=== PATIENT | female | born 1980 | race Caucasian/White ===

== ENCOUNTER → 2017-07-20 | Outpatient (CLI) | END | disposition home or self-care (01) ==

== ENCOUNTER 2018-08-06 11:26 | Emergency (ER) | payer MEDICAID ==
[~2018-08-06] VITALS: Ht 167.6 cm; Wt 103.2 kg
[2018-08-06 12:00] VITALS: Ht 167.6 cm; Wt 103.2 kg
--- NOTE | 2018-08-06 13:59 | ERD ---
ER Documentation Chief Complaint Chief Complaint dizziness x1 day, 11wks , G10, P6 HPI 37-year-old female, presents the emergency department, complaining of 1 day with dizziness described as a spinning sensation. The patient is currently at 11 weeks and was recently diagnosed with gestational diabetes and started on insulin 3 days ago. The patient believes that the symptoms are caused by the insulin. She denies abdominal pain, no vaginal bleeding, no headache, no blurred vision. ROS All systems reviewed and are negative except as per history of present illness. PMhx/Soc Hx Miscellaneous Medical Probl: Yes (dm) Hx Alcohol Use: No Hx Substance Use: No Hx Tobacco Use: No Smoking Status: Never smoker FmHx Family History: diabetes; No coronary disease Physical Exam Vitals Vital Signs Date Temp Pulse Resp B/P (MAP) Pulse Ox O2 O2 Flow FiO2 Time Delivery Rate 08/06/18 98.5 96 18 122/70 97 Room Air 15:43 (87) 08/06/18 97.8 87 18 122/75 98 12:00 (91) Physical Exam Const: No acute distress Head: Atraumatic Eyes: Normal Conjunctiva ENT: Normal External Ears, Nose and Mouth. Neck: Full range of motion. No meningismus. Resp: Clear to auscultation bilaterally Cardio: Regular rate and rhythm, no murmurs Abd: Soft, non tender, non distended. Normal bowel sounds Skin: No petechiae or rashes Back: No midline or flank tenderness Ext: No cyanosis, or edema Neur: Awake and alert Psych: Normal Mood and Affect Result Diagram: 08/06/18 1426 08/06/18 1426 Results 24 hrs Laboratory Tests Test 08/06/18 14:26 White Blood Count 8.7 10^3/ul Red Blood Count . 10^6/ul Hemoglobin 11.9 g/dl Hematocrit 36.1 % Mean Corpuscular Volume 86.2 fl Mean Corpuscular Hemoglobin 28.4 pg Mean Corpuscular Hemoglobin Concent 33.0 g/dl Red Cell Distribution Width 14.6 % Platelet Count 294 10^3/UL Mean Platelet Volume 10.4 fl Immature Granulocytes % 0.700 % Neutrophils % 66.4 % Lymphocytes % 20.7 % Monocytes % 8.2 % Eosinophils % 3.8 % Basophils % 0.2 % Nucleated Red Blood Cells % 0.0 /100WBC Immature Granulocytes # 0.060 10^3/ul Neutrophils # 5.7 10^3/ul Lymphocytes # 1.8 10^3/ul Monocytes # 0.7 10^3/ul Eosinophils # 0.3 10^3/ul Basophils # 0.0 10^3/ul Nucleated Red Blood Cells # 0.0 10^3/ul Urine Color YELLOW Urine Clarity SLIGHTLY CLOUDY Urine pH 5.0 Urine Specific [place] 1.019 Urine Ketones NEGATIVE mg/dL Urine Nitrite NEGATIVE mg/dL Urine Bilirubin NEGATIVE mg/dL Urine Urobilinogen NEGATIVE mg/dL Urine Leukocyte Esterase NEGATIVE Alo/ul Urine Microscopic RBC 1 /HPF Urine Microscopic WBC 1 /HPF Urine Squamous Epithelial Cells FEW /HPF Urine Bacteria FEW /HPF Urine Mucus FEW /HPF Urine Hemoglobin NEGATIVE mg/dL Urine Glucose NEGATIVE mg/dL Urine Total Protein NEGATIVE mg/dl Sodium Level 139 mmol/L Potassium Level 4.1 mmol/L Chloride Level 103 mmol/L Carbon Dioxide Level 22 mmol/L Anion Gap 14 Blood Urea Nitrogen 7 mg/dl Creatinine 0.37 mg/dl Est Glomerular Filtrat Rate mL/min > 60 mL/min Glucose Level 74 mg/dl Calcium Level 9.8 mg/dl Procedures/MDM Vital signs stable, neurovascular exam intact. Differential diagnosis include but not limited to dehydration, cardiac arrhythmia, hypoglycemia, Mnire's disease, vestibular neuronitis, migraine, vertigo, side effects of the medications. Labs: CBC: normal, BMP: normal kidney function, normal electrolytes. Glucose: normal Physical examination and clinical presentation consistent most likely with transient hypoglycemia due to the new onset on insulin. During the ED course the patient remained stable, no new complaints. Results and clinical impression discussed with patient who agrees with management. The patient is stable to be treated outpatient and will be discharged home with instructions to follow up with the primary care provider in the next 48h. If symptoms persist, worsen or new symptoms develop, then patient should return to the ED immediately. Instructions explained and given directly by me to the patient with acknowledgment and demonstrated understanding. Disclaimer: Inadvertent spelling and grammatical errors are likely due to E HR/dictation software use and do not reflect on the overall quality of patient care. Also, please note that the electronic time recorded on this note does not necessarily reflect the actual time of the patient encounter. Departure Diagnosis: Primary Impression: Gestational diabetes mellitus (GDM) Additional Impression: Insulin dose changed Condition: Stable Additional Instructions: Muchas anthony por [facility] para silver servicio. Esperamos que en silver visita a la maik de emergencia silver problema medico haya sido solucionado y que se sienta mucho mejor. Para estar seguros que silver mejoria sigue en proceso, le pedimos el favor de hacer danika pierre de seguimiento medico con silver doctor primario en los proximos 2-4 alba. Lleve con usted estos documentos y las medicinas recetadas. Si ever sintomas empeoran, NO SE ESPERE, por favor regrese a maik de emergencia INMEDIATAMENTE. En frieda que usted no tenga un mdico de atencin primaria: Llame al mdico o clnica comunitaria de referencia que aparece abajo ethan las horas de consultorio para hacer danika pierre para que le vean. CLINICAS: [facility] [phone] [facility] [phone] [facility] [phone] [facility]. [facility] [phone] [facility] [place] [phone] [facility]. [phone] OLI PIKE MD Aug 06, 2018 13:59
[2018-08-06 15:43] VITALS: BP 122/70; PULSE 96; RESP 18
== END 2018-08-06 15:44 | disposition home or self-care (01) ==
LOC: FTE 11:26
DX: O24.419 Gestational diabetes mellitus in pregnancy, unspecified control (principal); Z3A.11 11 weeks gestation of pregnancy
CPT/HCPCS: 80048; 81001; 85025; Z7502; 81003; 99283

== ENCOUNTER 2018-10-12 18:23 | Outpatient (CLI) | payer MEDICAID ==
[~2018-10-12] VITALS: Ht 165.1 cm; Wt 104.3 kg
[2018-10-12 19:13] VITALS: BP 108/65; PULSE 89; RESP 18; Ht 165.1 cm; Wt 104.3 kg
--- NOTE | 2018-10-12 21:21 | PN ---
Triage Information Date/Time 10/12/18 Reason for visit: Abd/pelvic pain ( perineal pressure sensation) Weeks of Gestation 20w5d /Para Diabetes: none Hypertention: none Additional information resting make it alleviated aggrevated with activities Objective Vital Signs Date Temp Pulse Resp B/P (MAP) Pulse Ox O2 O2 Flow FiO2 Time Delivery Rate 10/12/18 98.1 89 18 108/65 Room Air 19:13 (79) Heart Rate: 140's Heart Rate Comments for one min with doppler 140's Exam no UC felt on palation for 10min abdomen so pendulous Results/Medications Results 24 hrs Laboratory Tests Test 10/12/18 19:06 Urine Color YELLOW Urine Clarity SLIGHTLY CLOUDY A Urine pH 6.0 Urine Specific [place] 1.015 Urine Ketones NEGATIVE Urine Nitrite NEGATIVE Urine Bilirubin NEGATIVE Urine Urobilinogen NEGATIVE Urine Leukocyte Esterase NEGATIVE Urine Microscopic RBC 1 Urine Microscopic WBC 3 Urine Squamous Epithelial Cells FEW Urine Bacteria FEW A Urine Hemoglobin NEGATIVE Urine Glucose NEGATIVE Urine Total Protein NEGATIVE Imaging Results CVL 4.37 Disposition: Discharge Assessment/Plan A IUP 20w5d ligament pain P discharge home with abdominal binder RTH prPRISCILLA Basurto MD Oct 12, 2018 21:21
== END 2018-10-12 20:43 | disposition home or self-care (01) ==
LOC: L-D 18:23 → OBT 18:23
PROVIDERS: ATTEND Obstetrics & Gynecology
DX: O26.892 Other specified pregnancy related conditions, second trimester (principal); R10.9 Unspecified abdominal pain; Z3A.20 20 weeks gestation of pregnancy
CPT/HCPCS: 76817; 81001; 87086; Z7500; 81003; G0463

== ENCOUNTER 2018-11-27 18:38 | Outpatient (CLI) | payer MEDICAID ==
[~2018-11-27] VITALS: Ht 167.6 cm; Wt 105.6 kg
[~2018-11-27 18:38] MED LIST: CALC600T24 PO; NOVO3I SC; NOVO7030 SC; PREN-93 PO
[2018-11-27 19:36] VITALS: BP 117/63; PULSE 98; RESP 18; Ht 167.6 cm; Wt 105.6 kg
--- NOTE | 2018-11-27 22:49 | PN ---
Triage Information Date/Time Reason for visit: Abd/pelvic pain Weeks of Gestation 27 weeks /Para Diabetes: none Hypertention: none Objective Vital Signs Date Temp Pulse Resp B/P (MAP) Pulse Ox O2 O2 Flow FiO2 Time Delivery Rate 11/27/18 97.5 98 18 117/63 Room Air 19:36 (81) Heart Rate: 120's Heart Rate Comments Reactive Exam Cervix closed Results/Medications Result Diagram: 11/27/182015 Results 24 hrs Laboratory Tests Test 11/27/18 20:16 11/27/18 21:21 White Blood Count 9.6 Red Blood Count 3.49 L Hemoglobin 10.5 L Hematocrit 31.6 L Mean Corpuscular Volume 90.5 Mean Corpuscular Hemoglobin 30.1 Mean Corpuscular Hemoglobin Concent 33.2 Red Cell Distribution Width 14.6 H Platelet Count 251 Mean Platelet Volume 10.4 Immature Granulocytes % 1.500 H Neutrophils % 69.7 Lymphocytes % 16.4 Monocytes % 8.7 Eosinophils % 3.5 Basophils % 0.2 Nucleated Red Blood Cells % 0.0 Immature Granulocytes # 0.140 H Neutrophils # 6.7 Lymphocytes # 1.6 Monocytes # 0.8 Eosinophils # 0.3 Basophils # 0.0 Nucleated Red Blood Cells # 0.0 Urine Color YELLOW Urine Clarity SLIGHTLY CLOUDY A Urine pH 6.0 Urine Specific [place] 1.022 Urine Ketones TRACE A Urine Nitrite NEGATIVE Urine Bilirubin NEGATIVE Urine Urobilinogen NEGATIVE Urine Leukocyte Esterase NEGATIVE Urine Microscopic RBC 0 Urine Microscopic WBC 4 Urine Squamous Epithelial Cells FEW Urine Bacteria FEW A Urine Mucus FEW A Urine Hemoglobin NEGATIVE Urine Glucose 3+ H Urine Total Protein NEGATIVE Bedside Glucose 124 Imaging Results Cervical length normal Disposition: Discharge Assessment/Plan No sign of labor Follow up with TAYLOR Frances MD Nov 27, 2018 22:49
== END 2018-11-27 23:05 | disposition home or self-care (01) ==
LOC: OBT 18:38 → L-D 18:43 → OBT 23:05
PROVIDERS: ATTEND Obstetrics & Gynecology
DX: O26.892 Other specified pregnancy related conditions, second trimester (principal); O24.419 Gestational diabetes mellitus in pregnancy, unspecified control; R10.2 Pelvic and perineal pain; Z3A.27 27 weeks gestation of pregnancy
CPT/HCPCS: 76815; 76817; 81001; 82962; 85025; 87086; Z7500; 81003; G0463

== ENCOUNTER 2018-11-29 13:58 | Outpatient (CLI) | payer MEDICAID ==
[~2018-11-29] VITALS: Ht 167.6 cm; Wt 105.6 kg
[2018-11-29 13:51] VITALS: Ht 167.6 cm; Wt 105.6 kg
[2018-11-29 14:25] VITALS: BP 111/60; PULSE 90; RESP 18
[2018-11-29] MEDS: ACETAMINOPHEN 500 MG TAB PO STA ×2 (19:40→20:15)
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
== END 2018-11-29 22:07 | disposition home or self-care (01) ==
LOC: OBT 13:58 → L-D 13:59 → OBT 22:07
PROVIDERS: ATTEND Obstetrics & Gynecology
DX: O24.414 Gestational diabetes mellitus in pregnancy, insulin controlled (principal); Z3A.27 27 weeks gestation of pregnancy; O26.892 Other specified pregnancy related conditions, second trimester; M54.9 Dorsalgia, unspecified
CPT/HCPCS: 76817; 76818; 81001; 85025; 87086; Z7500; Z7610; 81003; G0463